=== PATIENT | female | born 1975 | race Caucasian/White ===

== ENCOUNTER 2019-07-01 15:11 | Outpatient (CLI) | payer OTHER ==
--- NOTE | 2019-07-01 15:44 | RAD ---
Exam: Cervical spine 3 views HISTORY: Cervical radiculopathy Comparison: 02/27/2019 FINDINGS: Predental space is normal. No prevertebral soft tissue swelling Redemonstration of the anterior fusion plate with transvertebral body screw at C5, C6 and C7. No hannah articular lucency. Disc prosthesis at C5-C6 and C6-C7. Stable osteophyte formation of the anterior C2-C3 disc space Limited evaluation of the odontoid process on the open-mouth projection. Lateral masses of C1-C2 marlee culate appropriately In the AP projection, there is multilevel facet arthropathy. No malalignment IMPRESSION: Essentially stable cervical fusion. Transcribed Date/Time: 07/01/2019 3:50 PM
== END 2019-07-01 15:12 | disposition home or self-care (01) ==
LOC: TBSIIMAG 15:11
PROVIDERS: ATTEND Neurological Surgery
DX: M54.12 Radiculopathy, cervical region (principal); Z98.1 Arthrodesis status
CPT/HCPCS: 72040